=== PATIENT | female | born 1970 | race Caucasian/White ===

== ENCOUNTER 2018-09-02 12:22 | Emergency (ER) | payer OTHER ==
[2018-09-02 13:11] LABS: URINE BLOOD (Dip) POC 3+ (NEGATIVE); URINE GLUCOSE (Dip) POC Negative (NEGATIVE); URINE KETONES (Dip) POC Negative (NEGATIVE); URINE LEUKOCYTE EST (Dip) POC Negative (NEGATIVE); URINE NITRITE (Dip) POC Negative (NEGATIVE); URINE TOTAL PROTEIN POC Negative (NEGATIVE)
[2018-09-02] MEDS: ONDANSETRON (ODT) 4 MG TAB ODT (13:16)
[2018-09-02] MEDS: MECLIZINE 12.5 MG TAB PO (13:16)
== END 2018-09-02 13:55 | disposition home or self-care (01) ==
LOC: FTE 12:22
DX: R42 Dizziness and giddiness (principal); I10 Essential (primary) hypertension
CPT/HCPCS: 81003; 81025; 93005; 99283-25